=== PATIENT | female | born 1990 ===

== ENCOUNTER 2017-11-02 10:41 | Inpatient (IN) | payer OTHER ==
[~2017-11-02] VITALS: Ht 149.9 cm; Wt 3.2 kg
[2017-11-02] MEDS ORDERED: IRON18 MG PO (10:47)
[2017-11-02] MEDS ORDERED: PRENATAL 19 TA1 EACH PO (10:48)
[2017-11-02] MEDS ORDERED: ADRENOID CAPSU1 EACH PO (10:49)
[2017-11-04] MEDS ORDERED: PREPLUS CA-FE1 EACH PO (08:48)
[2017-11-04] MEDS ORDERED: NAPR500T14 PO (08:48)
== END 2017-11-04 10:50 | disposition home or self-care (01) | DRG 766 ==
LOC: OB/GYN 10:41 → LDR 10:41 → O/R 11:30 → OB/GYN 14:05
PROVIDERS: Specialist
PROC: 0UT70ZZ Resection of Bilateral Fallopian Tubes, Open Approach (ICD-10-PCS; 2017-11-02)
PROC: 4A1HXCZ Monitoring of Products of Conception, Cardiac Rate, External Approach (ICD-10-PCS; 2017-11-02)
PROC: 10D00Z1 Extraction of Products of Conception, Low, Open Approach (ICD-10-PCS; principal; 2017-11-02 11:15)
DX: O34.211 Maternal care for low transverse scar from previous cesarean delivery (principal); Z3A.38 38 weeks gestation of pregnancy; Z30.2 Encounter for sterilization; Z64.1 Problems related to multiparity; Z37.0 Single live birth